=== PATIENT | female | born 1990 | race Caucasian/White ===

== ENCOUNTER → 2020-06-10 | Outpatient (CLI) | payer OTHER ==
--- NOTE | 2020-06-10 08:26 | US ---
EXAMINATION TYPE: Transabdominal DATE OF EXAM: 06/10/2020 7:55 AM COMPARISON: NONE CLINICAL HISTORY: confirm dates Z36. Positive beta-hCG test. EXAM PERFORMED: Transabdominal (TA) EXAM MEASUREMENTS: GESTATIONAL AGE / DATING Physician Established: Not yet established Dates by LMP: (12 weeks/3 days) EDC: 12/20/20 Dates by First Scan: No previous this is first scan Dates by Current Scan for: (12 weeks/2 days) EDC: 12/21/20 MATERNAL ANATOMY Uterus: 14.1 x 5.4 x 8.5cm Right Ovary: obscure by overlying bowel/increased uterine size Left Ovary: 1.9 x 1.4 x 2.0cm Post CDS / Adnexa: wnl Presence of free fluid: no GESTATION / SURVEY CRL: 5.7cm (12 weeks/2 days) Yolk Sac (normal less than 6mm): not visualized Heart Rate: 158 bpm Rhythm: Normal IUP: Viable IUP Nuchal Translucency 10-14wks (normal less than 3mm): Not visualized Date of LMP: 03/15/20 Beta HcG (if available): Not available at this time Single live intrauterine gestation is confirmed as gestational sac and pole are seen. Yolk sac not identified. No free fluid in pelvic cul-de-sac. Left ovary is seen and unremarkable. Right ovary not identified. No suspicious adnexal masses noted. IMPRESSION: Confirmation of single live intrauterine gestation, mean crown-rump length 5.7 cm corresp onding to 12 week 2 day old fetus.
== END | disposition home or self-care (01) ==
LOC: RADUSWWP 07:22
PROVIDERS: ATTEND Obstetrics & Gynecology
DX: Z36.9 Encounter for antenatal screening, unspecified (principal); Z3A.12 12 weeks gestation of pregnancy
CPT/HCPCS: 76801

== ENCOUNTER → 2020-07-28 | Outpatient (CLI) | payer OTHER ==
--- NOTE | 2020-07-29 07:00 | US ---
EXAMINATION TYPE: US OB anatomy transabd DATE OF EXAM: 07/28/2020 COMPARISON: Prior ultrasound June 10, 2020 HISTORY: O36.062 Large for dates, second trimester Anatomy TECHNIQUE: Transabdominal (TA) EXAM MEASUREMENTS: GESTATIONAL AGE / DATING Physician Established: (19 weeks/2 days) EDC: 12/20/2020 Dates by Current Scan for: (19 weeks/2 days) EDC: 12/20/2020 SURVEY IUP: Single PLACENTA: Posterior PREVIA: No previa KANWAL: 13.0 cm Normal CERVICAL LENGTH (transabdominal: norm > 3.0cm): 3.4 cm BIOMETRY LIE: Transverse lie with head maternal Left BPD: 4.4 cm 19 weeks / 3 days HC: 16.2 cm 19 weeks / 0 days AC: 13.6 cm 19 weeks / 1 days FL: 3.0 cm 19 weeks / 2 days ESTIMATED WEIGHT IN GRAMS: 276 grams ESTIMATED WEIGHT IN LBS/OZ: 0 lbs. 10 oz. WEIGHT PERCENTAGE BASED ON ESTABLISHED DATE: 37 % HC/AC: 1.2 Normal FL/AC: 22% HEART RATE: 150 bpm RHYTHM: Normal ANATOMY SEEN (within normal limits): * Lateral Vent (< 1 cm) 0.6 cm * Cisterna Magna (< 1.1 cm) 0.4 cm * Nuchal Fold (< 0.6 cm) 0.4 cm * Cerebellum (varies with age) 1.9 cm Choroid Plexus (bilateral) Midline Falx Cavus Septi Pellucidi Four Chamber Heart Outflow tracts: LVOT/RVOT Stomach Situs Nose / Lips Diaphragm Kidneys (bilateral) Bladder Cord Insert Three Vessel Cord Longitudinal Spine Transverse Spine Arms (bilateral) Legs (bilateral) Feet (bilateral) Hands (bilateral) Single live intrauterine gestation is redemonstrated. Transverse lie present currently. No cervical t hinning. No ultrasound evidence for placenta previa. Calculated amniotic fluid index within normal li mits. biometry measurements congruent and felt within normal limits. No suspicious abnormality seen on anatomical survey during real-time scanning or images saved. IMPRESSION: As above.
== END | disposition home or self-care (01) ==
LOC: RADUSWWP 16:05
PROVIDERS: ATTEND Obstetrics & Gynecology
DX: O36.62X0 Maternal care for excessive fetal growth, second trimester, not applicable or unspecified (principal); O32.2XX0 Maternal care for transverse and oblique lie, not applicable or unspecified; Z3A.19 19 weeks gestation of pregnancy
CPT/HCPCS: 76811

== ENCOUNTER 2020-08-19 20:50 | Outpatient (CLI) | payer OTHER ==
[2020-08-19 21:24] VITALS: BP 111/73; PULSE 96; RESP 16; TEMP 97.2
--- NOTE | 2020-08-20 06:39 | P.MSEPDOC ---
Presenting Problems - Arrival Data Date of Arrival on Unit: 08/19/20 Time of Arrival on Unit: 20:50 Mode of Transport: Ambulatory - Complaint OB-Reason for Admission/Chief Complaint: Decreased Movement Medical History - Information : 1 Para: 0 Term: 0 : 0 Abortions: Spontaneous or Elective: 0 Number of Living Children: 1 - Gestational Age Gestational Age by GHADA (wks/days): 22 Weeks and 3 Days Review of Systems - Review of Systems Constitutional: No problems Breast: No problems ENT: No problems Cardiovascular: No problems Respiratory: No problems Gastrointestinal: No problems Genitourinary: No problems Musculoskeletal: No problems Neurological: No problems Skin: No problems Vital Signs - Temperature Temperature: 97.2 F Temperature Source: Temporal Artery Scan - Pulse Right Pulse Rate: 96 Pulse Assessment Method: Automatic Cuff - Respirations Respiratory Rate: 16 Oxygen Delivery Method: Room Air O2 Sat by Pulse Oximetry: 99 - Blood Pressure Right Arm Blood Pressure: 111/73 Blood Pressure Mean: 85 Blood Pressure Source: Automatic Cuff Medical Screen Scoring (Pre) - Cervical Exam Dilation: Exam Deferred Effacement: Exam Deferred Membranes: Intact - Uterine Contractions Frequency: N/A Duration: N/A Intensity: N/A - Maternal Vital Signs Maternal Temperature: N/A Maternal Blood Pressure: N/A Signs of Preeclampsia: N/A - Maternal Trauma Maternal Trauma: N/A - Assessment - Baby A Baseline FHR: 152 Position: N/A Station: N/A - Total Score - Baby A Total Score - Baby A: 0 - Total Score - Baby B Total Score - Baby B: 0 - Total Score - Baby C Total Score - Baby C: 0 - Level of Risk - Baby A Level of Risk - Baby A: Low (0-5) - Level of Risk - Baby B Level of Risk - Baby B: Low (0-5) - Level of Risk - Baby C Level of Risk - Baby C: Low (0-5) Physician Notification (Pre) - Physician Notified Physician Notified Date: 08/19/20 Physician Notified Time: 21:02 Disposition - Disposition OB Disposition: Discharge to home Discharge Date: 08/19/20 Discharge Time: 21:10 I agree with the RN Medical Screening Exam: Yes Risk & Benefit of care provided described in d/c instruction: Yes Diagnosis: DECREASED MOVEMENTS, SECOND TRIMESTER, FETUS 1
== END 2020-08-19 21:10 | disposition home or self-care (01) ==
LOC: FBPOP 20:50
PROVIDERS: ATTEND Obstetrics & Gynecology
DX: O36.8120 Decreased fetal movements, second trimester, not applicable or unspecified (principal); Z3A.22 22 weeks gestation of pregnancy
CPT/HCPCS: 99213

== ENCOUNTER → 2020-11-24 | Outpatient (CLI) | payer OTHER ==
--- NOTE | 2020-11-25 09:18 | US ---
EXAMINATION TYPE: US OB >= 14 wk fetus DATE OF EXAM: 11/24/2020 COMPARISON: Prior ultrasound June 10, 2020 and July 28, 2020. CLINICAL HISTORY: O36.63X0 LARGE FOR DATES Growth. TECHNIQUE: Transabdominal (TA) GESTATIONAL AGE / DATING Physician Established: (36 weeks/2 days) EDC: 12/20/2020 Dates by Current Scan: (36 weeks/6 days) EDC: 12/16/2020 Beta HCG (if available): Not available at this time SURVEY IUP: Single PLACENTA: Right lateral PREVIA: No Previa KANAWL: 13.5 cm Normal CERVICAL LENGTH (transabdominal: norm > 3.0cm): 3.4 cm BIOMETRY PRESENTATION: Vertex BPD: 9.3 cm 37 weeks / 6 days HC: 32.6 cm 37 weeks / 0 days AC: 32.8 cm 36 weeks / 5 days FL: 6.9 cm 35 weeks / 3 days ESTIMATED WEIGHT IN GRAMS: 3965 grams ESTIMATED WEIGHT IN LBS/OZ: 6 lbs. 9 oz. WEIGHT PERCENTAGE BASED ON ESTABLISHED DATES: 60% HC/AC: 1.0 Normal FL/AC: 21% Normal HEART RATE: 147 bpm RHYTHM: Normal Anatomy Visualized: Stomach Kidneys Bladder Four chamber heart Single live IUP measuring 36 weeks 6 days. Single live intrauterine gestation redemonstrated. Normal cephalad presentation currently. No cervica l thinning. Estimated amniotic fluid index within normal limits. No placenta previa. biometry m easurements congruent and are felt within normal limits with interval satisfactory progression. Some anatomical structures noted within normal limits as detailed above during real-time scanning. IMPRESSION: As above.
== END | disposition home or self-care (01) ==
LOC: RADUSWWP 15:26
PROVIDERS: ATTEND Obstetrics & Gynecology
DX: O36.63X0 Maternal care for excessive fetal growth, third trimester, not applicable or unspecified (principal)
CPT/HCPCS: 76805

== ENCOUNTER 2020-12-20 09:48 | Inpatient (IN) | payer OTHER ==
[2020-12-24] MEDS ORDERED: ROPIVACAINE 5MG/ML 20ML VIAL ONE (11:16)
[2020-12-24] MEDS ORDERED: SODIUM CHLORIDE 0.9% 100 ML BAG ONE (11:16)
[2020-12-24] MEDS ORDERED: fentaNYL (PF) 50 MCG/ML 5 ML AMP ONE (11:16)
--- NOTE | 2020-12-24 21:36 | P.HPOB ---
History of Present Illness H&P Date: 12/24/20 Chief Complaint: Post-dates induction This is a 30 y.o. female, 1, para 0, with an estimated date of confinement of 12/20/2020, estimated gestational age of 40-5/7 weeks, who presents for oxytocin induction of labor for post-dates. She has irregular contractions and pressure. She also complains of some leg swelling. course was complicated by placental previa with bleeding at 14 weeks. The previa did resolve. She did get COVID vaccine during her . labs: Hepatitis B surface antigen-neg RPR-NR Rubella-immune Blood type-O+ Antibody screen-neg Hemoglobin-14.5 Random glucose-88 GC/Chlamydia/Trich-neg OziffsiS83-nec Serum AFP-neg for spina bifida 1 hr. 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 Workd full-time [employer] Review of Systems Constitutional: Denies chills, Denies fever Eyes: denies blurred vision, denies pain Ears, nose, mouth and throat: Denies headache, Denies sore throat Cardiovascular: Denies chest pain, Denies shortness of breath Respiratory: Denies cough Gastrointestinal: Reports abdominal pain (irregular contractions) Genitourinary: Reports pelvic pain, Reports Musculoskeletal: Reports low back pain Integumentary: Denies pruritus, Denies rash Neurological: Denies numbness, Denies weakness Psychiatric: Denies anxiety, Denies depression Past Medical History Past Medical History: No Reported History History of Any Multi-Drug Resistant Organisms: None Reported Past Surgical History: No Surgical Hx Reported Past Psychological History: No Psychological Hx Reported Smoking Status: Never smoker Past Alcohol Use History: None Reported Past Drug Use History: None Reported - Past Family History Mother Family Medical History: No Reported History Medications and Allergies Home Medications Medication Instructions Recorded Confirmed Type Pnv,Calcium 72/Iron/Folic Acid 1 each PO 12/24/20 History [ Plus Tablet] Allergies Allergy/AdvReac Type Severity Reaction Status Date / Time No Known Allergies Allergy Verified 08/19/20 20:59 Exam Osteopathic Statement: *. No significant issues noted on an osteopathic structural exam other than those noted in the History and Physical/Consult. HEENT: within normal limits Heart: regular rate and rhythm Lungs: clear to auscultation Abdomen: , non-tender heart tones: reactive Cervix: 1.5 cm/80%/-2 Extremities: neg. Danie's Assessment and Plan (1) Postmaturity , 40-42 weeks gestation Status: Acute Code(s): O48.0 - POST-TERM SNOMED Code(s): 14354946376096 Plan: Proceed with oxytocin induction of labor. Epidural anesthesia if desired. Expectant management.
[2020-12-25] MEDS ORDERED: TERBUTALINE 1 MG/ML VIAL SQ PRN (06:18)
[2020-12-25] MEDS ORDERED: LIDOCAINE 0.5% (PF) 5 MG/ML (50 ML SDV) SQ PRN (06:18)
[2020-12-25] MEDS ORDERED: LIDOCAINE 1% (10MG/ML) FOR IV START INTRADERMA PRN (06:18)
[2020-12-25] MEDS ORDERED: METHYLERGONOVINE 0.2 MG/ML 1 ML AMP IM PRN (06:18)
[2020-12-25] MEDS ORDERED: OXYTOCIN 10 UNIT/ML 1 ML VIAL IM PRN (06:18)
[2020-12-25] MEDS ORDERED: OXYTOCIN 30 UNITS/500 ML NS 30 UNIT in SALINE 1 500ML.BAG IV SCH (06:18)
[2020-12-25] MEDS ORDERED: CARBOPROST TROMETHAMINE 250 MCG/ML 1 ML AMP IM PRN (06:18)
[2020-12-25] MEDS: LACTATED RINGERS 1,000 ML IV SCH ×3 (06:35→13:15)
[2020-12-25 06:36] LABS: Basophils % (A) 0 %; Eosinophils # (A) 0.1 k/uL (0-0.7); Eosinophils % (A) 1 %; HCT 37.9 % (34.0-46.0); HGB 13.1 gm/dL (11.4-16.0); Lymphocytes # (A) 2.3 k/uL (1.0-4.8); Lymphocytes % (A) 19 %; MCHC 34.5 g/dL (31.0-37.0); MCV 84.1 fL (80.0-100.0); Mean Platelet Volume 9.8; Monocytes # (A) 0.6 k/uL (0-1.0); Monocytes % (A) 5 %; Neutrophils # (A) 8.9 k/uL (1.3-7.7); Neutrophils % (A) 74 %; Platelet Count 246 k/uL (150-450); RBC 4.51 m/uL (3.80-5.40); RDW 13.2 % (11.5-15.5)
[2020-12-25] MEDS ORDERED: BUTORPHANOL 1 MG/ML 1 ML VIAL IV PRN (10:01)
[2020-12-25] MEDS ORDERED: SIMETHICONE 80 MG CHEWABLE PO PRN (16:28)
[2020-12-25] MEDS ORDERED: LANOLIN CREAM 5 GM TUBE TOPICAL PRN (16:28)
[2020-12-25] MEDS ORDERED: ZOLPIDEM 5 MG TAB PO PRN (16:28)
[2020-12-25] MEDS ORDERED: HYDROCORTISONE 2.5% RECTAL CREAM 30 GM TUBE RECTAL PRN (16:28)
[2020-12-25] MEDS ORDERED: diphenhydrAMINE 50 MG/ML 1 ML VIAL IVP PRN ×2 (16:28)
[2020-12-25] MEDS ORDERED: BENZOCAINE/MENTHOL SPRAY 1 GM/SPRAY AEROSOL TOPICAL PRN (16:28)
[2020-12-25] MEDS ORDERED: ACETAMINOPHEN TAB 325 MG TAB PO PRN (16:28)
[2020-12-25] MEDS ORDERED: diphenhydrAMINE 50 MG CAP PO PRN (16:28)
[2020-12-25] MEDS ORDERED: diphenhydrAMINE 25 MG CAP PO PRN (16:28)
[2020-12-25] MEDS: IBUPROFEN 600 MG TAB PO SCH (16:37)
--- NOTE | 2020-12-25 18:32 | P.PROBDLV ---
Vaginal Delivery Note - . Vaginal Delivery Note: The patient progressed to complete dilation after oxytocin induction of labor and artificial rupture membranes with clear fluid noted. She did receive epidural anesthesia. Once reaching complete, she began pushing. 's head came to a crown. With one further push, the infant's head delivered across the perineum in a left occiput anterior lie followed by the anterior shoulder. With one remaining push, the anterior shoulder delivered followed by the remainder of the . Nuchal cord times one was reduced around the body with delivery. Nose and mouth were bulb suctioned at the perineum and after delivery. is placed on mother's abdomen and cord was clamped and cut. Infant was taken to warmer for evaluation. A viable female was noted with scores of 9 at 1 minute and 9 at 5 minutes and infant weight of 8 lbs. 13 oz. Her placenta delivered shortly thereafter, intact, with a three-vessel cord. Uterus contracted well after oxytocin was given and uterine massage was carried out. Inspection of the perineum revealed a second-degree perineal laceration. This area was anesthetized with 1% lidocaine and then sutured with 3-0 and 2-0 Vicryl suture in the usual multilayer fashion. Estimated blood loss is approximately 150 mL's. Both mother and infant are in stable condition.
[2020-12-25] MEDS: SENNOSIDES-DOCUSATE SODIUM 1 EACH TAB PO SCH (20:06)
[2020-12-26 06:11] LABS: Basophils % (A) 0 %; Eosinophils % (A) 0 %; HCT 34.2 % (34.0-46.0); HGB 11.3 gm/dL (11.4-16.0); Lymphocytes % (A) 12 %; MCH 28.1 pg (25.0-35.0); MCV 85.4 fL (80.0-100.0); Mean Platelet Volume 9.9; Monocytes # (A) 0.9 k/uL (0-1.0); Monocytes % (A) 5 %; Neutrophils # (A) 14.1 k/uL (1.3-7.7); Neutrophils % (A) 82 %; Platelet Count 225 k/uL (150-450); RBC 4.01 m/uL (3.80-5.40); RDW 13.6 % (11.5-15.5); WBC 17.3 k/uL (3.8-10.6)
[2020-12-26] MEDS: IBUPROFEN 600 MG TAB PO SCH ×4 (07:21→16:35)
[2020-12-26] MEDS: LACTATED RINGERS 1,000 ML IV SCH (07:22)
[2020-12-26] MEDS: SENNOSIDES-DOCUSATE SODIUM 1 EACH TAB PO SCH (07:52)
--- NOTE | 2020-12-26 09:42 | P.DS ---
Providers Date of admission: 12/25/20 05:57 Expected date of discharge: 12/26/20 Attending physician: Gia Marinelli Primary care physician: Stated None - Discharge Diagnosis(es) (1) Postmaturity , 40-42 weeks gestation Current Visit: No Status: Acute Hospital Course: Myesha 30-year-old female 1 para 0 at 40-5/7 weeks who presented for induction of labor. She underwent oxytocin induction of labor and delivered vaginally a viable female infant on 12/25/2020 with scores of 9 at 1 minute and 9 at 5 minutes and weight of 8 lbs. 13 oz. Her course has been essentially uncomplicated. Lochia is decreasing. Pain is well- controlled. She is working on breast-feeding. Vital signs are stable. Abdomen is soft with fundus firm and nontender. Extremities show negative Homans. Impression is status post vaginal delivery day #1. Plan is to discharge home later today. Routine instructions are given. She will be given a prescription for ibuprofen. She was also given a prescription for a breast pump. She is advised follow-up in the office in 6 weeks. She is advised to call the office if she has any further questions or concerns prior to her appointment time. Procedures: Oxytocin induction of labor Spontaneous vaginal delivery of a viable female on 12/25/2020 Patient Condition at Discharge: Stable Plan - Discharge Summary Discharge Rx Participant: No New Discharge Prescriptions: New Ibuprofen [Motrin] 600 mg PO Q6H #60 tab Continue Pnv,Calcium 72/Iron/Folic Acid [ Plus Tablet] 1 each PO Discharge Medication List Pnv,Calcium 72/Iron/Folic Acid [ Plus Tablet] 1 each PO 12/24/20 [History] Ibuprofen [Motrin] 600 mg PO Q6H #60 tab 12/26/20 [Rx] Follow up Appointment(s)/Referral(s): Gia Marinelli DO [Doctor of Osteopathic Medicine] - 6 Weeks Activity/Diet/Wound Care/Special Instructions: Instructions 1. Do not begin any exercise program for 3 weeks. 2. Do not resume sexual relations for 3 weeks or longer if uncomfortable. 3. You may take tub baths or showers at any time. 4. You may use tampons if desired after 3 weeks. 5. Keep the area of episiotomy (stitches) clean and dry. 6. If you are not nursing, wear a good fitting, supportive bra during the day and limit fluid intake for at least 1 week to prevent breast engorgement. 7. Call the office, [phone], within the next week to make appointment for your 6 week checkup if it has not already been made. 8. Report any of the following occurrences to the doctor promptly: a. Heavy, excessive bleeding b. Chills, fever c. Burning or frequency of urination d. Pain or redness and breasts if nursing e. Increasing pain or swelling in episiotomy (stitches). In addition to the above instructions, the following additional should be followed: 1. No heavy lifting or straining (exercising) until after 6 week checkup. 2. Keep abdominal incision clean and dry: You may wear a dressing if more comfortable. 3. Make office appointment for 10 days after going home or as instructed by her doctor. Discharge Disposition: HOME SELF-CARE
[2020-12-26 10:17] VITALS: RESP 18
[2020-12-26 17:38] VITALS: BP 114/68; PULSE 97; TEMP 98.4
== END 2020-12-26 16:45 | disposition home or self-care (01) | DRG 805 ==
LOC: 4FBP 12-25 05:57
PROVIDERS: ADMIT Obstetrics & Gynecology; ATTEND Obstetrics & Gynecology
PROC: 10E0XZZ Delivery of Products of Conception, External Approach (ICD-10-PCS; principal; 2020-12-25)
PROC: 3E0R3BZ Introduction of Anesthetic Agent into Spinal Canal, Percutaneous Approach (ICD-10-PCS; principal; 2020-12-25)
PROC: 00HU33Z Insertion of Infusion Device into Spinal Canal, Percutaneous Approach (ICD-10-PCS; principal; 2020-12-25)
PROC: 10907ZC Drainage of Amniotic Fluid, Therapeutic from Products of Conception, Via Natural or Artificial Opening (ICD-10-PCS; principal; 2020-12-25)
PROC: 3E033VJ Introduction of Other Hormone into Peripheral Vein, Percutaneous Approach (ICD-10-PCS; principal; 2020-12-25)
PROC: 0KQM0ZZ Repair Perineum Muscle, Open Approach (ICD-10-PCS; principal; 2020-12-25)
DX: O48.0 Post-term pregnancy (principal); O44.11 Complete placenta previa with hemorrhage, first trimester; Z37.0 Single live birth; O70.1 Second degree perineal laceration during delivery; O69.81X0 Labor and delivery complicated by cord around neck, without compression, not applicable or unspecified; Z3A.40 40 weeks gestation of pregnancy; Z79.899 Other long term (current) drug therapy
CPT/HCPCS: 85025; 86850; 86900; 86901